=== PATIENT | female | born 1940 | race Caucasian/White ===

== ENCOUNTER 2020-10-23 08:00 | Outpatient (CLI) | payer MEDICARE, MEDICAID ==
[~2020-10-23] VITALS: Ht 152.4 cm; Wt 59.0 kg
[2020-10-23 16:28] LABS: BASOPHILS # (AUTO) 0.1 X10'3 (0-0.2); BASOPHILS % (AUTO) 0.8 % (0-1); EOSINOPHILS # (AUTO) 0.1 X10'3 (0-0.9); EOSINOPHILS % (AUTO) 1.4 % (0-6); LYMPHOCYTES # (AUTO) 1.6 X10'3 (1.1-4.8); LYMPHOCYTES % (AUTO) 21.2 % (21-51); MEAN CORPUSCULAR HEMOGLOBIN 31.4 PG (27.0-31.0); MEAN CORPUSCULAR HGB CONC 33.3 g/dL (33.0-36.5); MEAN CORPUSCULAR VOLUME 94.3 FL (78-98); MEAN PLATELET VOLUME 7.7 FL (7.4-10.4); MONOCYTES # (AUTO) 0.7 X10'3 (0-0.9); MONOCYTES % (AUTO) 9.7 % (2-12); NEUTROPHILS # (AUTO) 5.1 X10'3 (1.8-7.7); NEUTROPHILS % (AUTO) 66.9 % (42-75); PRE OP HEMATOCRIT 43.3 % (35.0-45.0); PRE OP HEMOGLOBIN 14.4 g/dL (12.0-16.0); PRE OP PLATELET COUNT 284 X10'3 (140-440); RED BLOOD COUNT 4.59 X10'6 (4.20-5.60)
[2020-10-23] MEDS ORDERED: ALEN70TA60 PO (16:31)
[2020-10-23] MEDS ORDERED: [UNRECOGNIZED DRUG - REMARK] PO (16:31)
[2020-10-23] MEDS ORDERED: FESO4TAB PO (16:31)
[2020-10-23] MEDS ORDERED: CALC1TAB2 PO (16:31)
[2020-10-23] MEDS ORDERED: VERA120T9 PO (16:31)
[2020-10-23] MEDS ORDERED: ASPI-611 PO (16:31)
[2020-10-23] MEDS ORDERED: RAMI10CA69 PO (16:31)
[2020-10-23] MEDS ORDERED: DEXL60CA3 PO (16:31)
[2020-10-23 16:38] LABS: ALBUMIN 3.9 G/DL (3.4-5.0); ALBUMIN/GLOBULIN RATIO 1.1 (1.1-1.5); ALKALINE PHOSPHATASE 73 IU/L (46-116); BLOOD UREA NITROGEN 32 MG/DL (7-18); CALCIUM 9.4 MG/DL (8.5-10.1); CHLORIDE 105 MMOL/L (99-107); PRE OP ALT 25 U/L (30-65); PRE OP ANION GAP 7 (8-16); PRE OP AST 20 U/L (10-37); PRE OP BILIRUB, TOTAL 0.3 MG/DL (0.0-1.0); PRE OP GLUCOSE 96 MG/DL (70-104); PRE OP POTASSIUM 4.3 MMOL/L (3.4-5.1); PRE OP SODIUM 142 MMOL/L (135-145); TOTAL CARBON DIOXIDE 30.2 MMOL/L (24-32); TOTAL PROTEIN 7.4 G/DL (6.4-8.2); eGFR 69 ML/MIN
[2020-10-30] MEDS ORDERED: RAMI5CAP65 PO (11:25)
[2020-11-02] MEDS ORDERED: ringers solution, lacted 1,000 ML IV SCH (05:00)
[2020-11-02] MEDS ORDERED: tranexamic acid 650mg tablet PO ONE (05:30)
[2020-11-02] MEDS ORDERED: VANCOMYCIN INJ 1000 MG in NORMAL SALINE 250ml IV.SOLN IV ONE (05:30)
[2020-11-02] MEDS ORDERED: famotidine 20mg tablet PO ONE (05:30)
[2020-11-02] MEDS ORDERED: ceFAZolin 2gm in dextrose, iso 50 ML IV ONE (05:30)
== END 2020-10-23 23:59 | disposition home or self-care (01) ==
LOC: PRE-OP 08:00 → EDSTATUS 11-02 11:15
PROVIDERS: ATTEND Orthopaedic Surgery
DX: Z01.812 Encounter for preprocedural laboratory examination (principal); M19.012 Primary osteoarthritis, left shoulder; M75.122 Complete rotator cuff tear or rupture of left shoulder, not specified as traumatic; Z20.822 Contact with and (suspected) exposure to COVID-19
CPT/HCPCS: 36415; 80053; 85025; 87081; 87635; J7120

== ENCOUNTER 2020-11-09 21:09 | Emergency (ER) | payer MEDICARE, MEDICAID ==
[~2020-11-09] VITALS: Ht 152.4 cm; Wt 57.5 kg
[~2020-11-09 21:09] MED LIST: ALEN70TA60 PO; ASPI-611 PO; CALC1TAB2 PO; DEXL60CA3 PO; FESO4TAB PO; RAMI5CAP65 PO; VERA120T9 PO; [UNRECOGNIZED DRUG - REMARK] PO
[2020-11-09 22:02] LABS: CLARITY,URINE CLOUDY (Clear); COLOR,URINE YELLOW (Yellow); GLUCOSE, URINE NEGATIVE (Neg); KETONES,URINE NEGATIVE (Neg); LEUKOCYTE ESTERASE ,URINE MODERATE (Neg); NITRITES, URINE POSITIVE (Neg); OCCULT BLOOD,URINE TRACE-INTACT (Neg); PH,URINE 5.5 (4.8-8.0); PROTEIN,URINE NEGATIVE (Neg); UROBILINOGEN,URINE 0.2 E.U/dL (0.2-1.0)
[2020-11-09 22:03] LABS: BASOPHILS # (AUTO) 0.1 X10'3 (0-0.2); BASOPHILS % (AUTO) 0.7 % (0-1); EOSINOPHILS # (AUTO) 0.2 X10'3 (0-0.9); EOSINOPHILS % (AUTO) 2.1 % (0-6); HEMATOCRIT 44.1 % (35.0-45.0); HEMOGLOBIN 14.7 g/dl (12.0-16.0); LYMPHOCYTES # (AUTO) 1.7 X10'3 (1.1-4.8); LYMPHOCYTES % (AUTO) 19.3 % (21-51); MEAN CORPUSCULAR HEMOGLOBIN 31.9 PG (27.0-31.0); MEAN CORPUSCULAR HGB CONC 33.2 g/dL (33.0-36.5); MEAN CORPUSCULAR VOLUME 96.1 FL (78-98); MEAN PLATELET VOLUME 7.9 FL (7.4-10.4); MONOCYTES # (AUTO) 0.7 X10'3 (0-0.9); MONOCYTES % (AUTO) 8.3 % (2-12); NEUTROPHILS # (AUTO) 6.1 X10'3 (1.8-7.7); NEUTROPHILS % (AUTO) 69.6 % (42-75); PLATELET COUNT 262 X10'3 (140-440); RED BLOOD COUNT 4.59 X10'6 (4.20-5.60); RED CELL DISTRIBUTION WIDTH 13.2 % (11.5-14.5); WHITE BLOOD COUNT 8.7 X10'3 (4.5-11.0)
[2020-11-09 22:09] LABS: UA COLLECTION TYPE CLN CATCH MIDSTREAM
[2020-11-09 22:11] LABS: WBC,URINE TNTC /HPF (0-4)
[2020-11-09 22:15] LABS: BACTERIA,URINE 4+ /HPF (Neg); MUCUS STRANDS FEW /LPF (Neg); RBC,URINE 0-2 /HPF (0-2); SQUAMOUS EPITHELIAL CELL,UR MODERATE /LPF (FEW); WBC CLUMPS,URINE FEW /HPF (NEGATIVE)
[2020-11-09 22:16] LABS: ALANINE AMINOTRANSFERASE 21 U/L (12-78); ALBUMIN 4.2 G/DL (3.4-5.0); ALBUMIN/GLOBULIN RATIO 1.3 (1.1-1.5); ALKALINE PHOSPHATASE 80 IU/L (46-116); ANION GAP 10 (8-16); ASPARTATE AMINO TRANSFERASE 15 U/L (10-37); BILIRUBIN,TOTAL 0.3 MG/DL (0.1-1.0); BLOOD UREA NITROGEN 35 MG/DL (7-18); BUN/CREATININE RATIO 37.6 (6.6-38.0); CALCIUM 9.4 MG/DL (8.5-10.1); CHLORIDE 106 MMOL/L (99-107); CREATININE 0.93 MG/DL (0.40-0.90); GLUCOSE 112 MG/DL (70-104); LIPASE 482 U/L (73-393); POTASSIUM 4.6 MMOL/L (3.5-5.1); SODIUM 143 MMOL/L (135-145); TOTAL CARBON DIOXIDE 27.3 MMOL/L (24-32); TOTAL PROTEIN 7.5 G/DL (6.4-8.2); eGFR 58 ML/MIN
[2020-11-09] MEDS ORDERED: celeCOXIB 100mg capsule PO SCH (22:20)
[2020-11-09] MEDS ORDERED: celeCOXIB 100mg capsule PO ONE (22:20)
[2020-11-09] MEDS ORDERED: HYDROcodone/acetaminophen 5mg/325mg tablet PO ONE (22:20)
[2020-11-09] MEDS ORDERED: levoFLOXACIN-Levaquin 750MG/D5 150 ML IV ONE (22:25)
[2020-11-09] MEDS ORDERED: normal saline 1000ML IV soln IVB ONE (22:25)
[2020-11-09] MEDS ORDERED: CELE-193 PO (22:33)
[2020-11-09] MEDS ORDERED: LEVO500T89 PO (22:33)
[2020-11-09] MEDS ORDERED: ACET-3068 PO (22:33)
[2020-11-10 00:49] VITALS: BP 152/76
--- NOTE | 2020-11-12 11:57 | NUR ---
PT CALLED AND NOTIFIED OF THE NEED TO CHANGE HER ABX BASED ON HER LAB RESULTS FOR A URINE CULTURE ON 11/09. PT NOTIFIED THAT HER ABX WILL BE CHANGED TO CEFDINIR 300MG BID x7 DAYS. RX CALLED INTO [facility] ON [facility] PER PT REQUEST AND DAUGHTER EDWARD WAS CALLED AND NOTIFIED VIA MSG TO [facility] MEDICATION AT PT'S REQUEST
== END 2020-11-10 00:55 | disposition home or self-care (01) ==
LOC: ER 21:10
DX: N39.0 Urinary tract infection, site not specified (principal); M54.9 Dorsalgia, unspecified; I10 Essential (primary) hypertension; G89.29 Other chronic pain; M81.0 Age-related osteoporosis without current pathological fracture; Z87.440 Personal history of urinary (tract) infections; Z88.0 Allergy status to penicillin; Z79.82 Long term (current) use of aspirin; Z79.2 Long term (current) use of antibiotics; Z79.899 Other long term (current) drug therapy
CPT/HCPCS: 36415; 80053; 81001; 83690; 85025; 87077; 87088; 87186; 96365; 96366; 99284; J1956; J7030

== ENCOUNTER 2022-11-18 11:11 | Emergency (ER) | payer MEDICARE, MEDICAID ==
[~2022-11-18] VITALS: Ht 152.4 cm; Wt 63.0 kg
[~2022-11-18 11:11] MED LIST changes: +ACET-1025 PO; +VERA120T86 PO; -VERA120T9 PO
[2022-11-18 12:17] LABS: BASOPHILS % (AUTO) 0.4 % (0-1); EOSINOPHILS # (AUTO) 0.1 X10'3 (0-0.9); EOSINOPHILS % (AUTO) 0.9 % (0-6); HEMATOCRIT 41.6 % (35.0-45.0); HEMOGLOBIN 13.9 g/dl (12.0-16.0); LYMPHOCYTES # (AUTO) 1.1 X10'3 (1.1-4.8); LYMPHOCYTES % (AUTO) 11.2 % (21-51); MEAN CORPUSCULAR HEMOGLOBIN 30.7 PG (27.0-31.0); MEAN CORPUSCULAR HGB CONC 33.3 g/dL (33.0-36.5); MEAN CORPUSCULAR VOLUME 92.1 FL (78-98); MEAN PLATELET VOLUME 7.5 FL (7.4-10.4); MONOCYTES # (AUTO) 0.9 X10'3 (0-0.9); MONOCYTES % (AUTO) 8.6 % (2-12); NEUTROPHILS # (AUTO) 7.9 X10'3 (1.8-7.7); NEUTROPHILS % (AUTO) 78.9 % (42-75); PLATELET COUNT 282 X10'3 (140-440); RED BLOOD COUNT 4.52 X10'6 (4.20-5.60); RED CELL DISTRIBUTION WIDTH 14.8 % (11.5-14.5)
--- NOTE | 2022-11-18 12:30 | NUR ---
DAUGHTER, EDWARD, CALLED FOR CONDITION REPORT. CONTACT NUMBER IS: HOME PHONE [phone]
[2022-11-18 12:32] LABS: ALANINE AMINOTRANSFERASE 11 U/L (12-78); ALBUMIN 3.4 G/DL (3.4-5.0); ALBUMIN/GLOBULIN RATIO 1.1 (1.1-1.5); ALKALINE PHOSPHATASE 67 IU/L (46-116); ANION GAP 8 (8-16); ASPARTATE AMINO TRANSFERASE 16 U/L (10-37); BILIRUBIN,TOTAL 0.5 MG/DL (0.1-1.0); CALCIUM 8.5 MG/DL (8.5-10.1); CHLORIDE 108 MMOL/L (99-107); CREATININE 0.58 MG/DL (0.40-0.90); GLUCOSE 106 MG/DL (70-104); LIPASE 129 U/L (73-393); POTASSIUM 3.9 MMOL/L (3.5-5.1); SODIUM 141 MMOL/L (135-145); TOTAL CARBON DIOXIDE 24.9 MMOL/L (24-32); TOTAL PROTEIN 6.6 G/DL (6.4-8.2); eGFR > 90 ML/MIN
[2022-11-18 12:40] LABS: BLOOD UREA NITROGEN 23 MG/DL (7-18); BUN/CREATININE RATIO 39.7 (6.6-38.0)
[2022-11-18] MEDS ORDERED: normal saline 1000ml 1,000 ML IV ONE (13:00)
[2022-11-18] MEDS ORDERED: iohexol 300mg/ml 100ml inj. ONE (13:15)
[2022-11-18 13:29] LABS: CLARITY,URINE SLIGHTLY CLOUDY (Clear); COLOR,URINE YELLOW (Yellow); GLUCOSE, URINE NEGATIVE (Neg); KETONES,URINE NEGATIVE (Neg); LEUKOCYTE ESTERASE ,URINE NEGATIVE (Neg); NITRITES, URINE POSITIVE (Neg); OCCULT BLOOD,URINE TRACE-INTACT (Neg); PROTEIN,URINE NEGATIVE (Neg); UROBILINOGEN,URINE 0.2 E.U/dL (0.2-1.0)
[2022-11-18 13:37] LABS: UA COLLECTION TYPE CLN CATCH MIDSTREAM
[2022-11-18 13:46] LABS: BACTERIA,URINE 2+ /HPF (Neg); MUCUS STRANDS FEW /LPF (Neg); RBC,URINE 0-2 /HPF (0-2); SQUAMOUS EPITHELIAL CELL,UR FEW /LPF (FEW); WBC CLUMPS,URINE FEW /HPF (NEGATIVE)
[2022-11-18 14:03] VITALS: BP 152/90
[2022-11-18] MEDS ORDERED: acetaminophen 325mg tablet PO ONE (14:50)
[2022-11-18] MEDS ORDERED: CefTRIAXone/D5W-Rocephin 1gm 50 ML IV ONE (14:50)
[2022-11-18] MEDS ORDERED: METR-159 PO (17:49)
[2022-11-18] MEDS ORDERED: CIPR-113 PO (17:49)
== END 2022-11-18 18:12 | disposition home or self-care (01) ==
LOC: ER 11:11
DX: N39.0 Urinary tract infection, site not specified (principal); K52.9 Noninfective gastroenteritis and colitis, unspecified; R10.84 Generalized abdominal pain; I10 Essential (primary) hypertension; K21.9 Gastro-esophageal reflux disease without esophagitis; Z88.0 Allergy status to penicillin
CPT/HCPCS: 36415; 74177; 80053; 81001; 83690; 85025; 87088; 87186; 96361; 96365; 99285; J0696; J3490; J7030; Q9967; 87077

== ENCOUNTER 2025-02-06 18:17 | Emergency (ER) | payer MEDICARE, MEDICAID ==
[~2025-02-06] VITALS: Ht 152.4 cm; Wt 61.4 kg
[~2025-02-06 18:17] MED LIST changes: -RAMI5CAP65 PO; +RAMI5CAP71 PO
--- NOTE | 2025-02-06 18:30 | Physician Documentation ---
History of Present Illness ~ Chief Complaint: Hypertension Stated Complaint: HIGH BLOOD PRESSURE Time Seen by MD: 18:30 Primary Medical Doctor: Sheri Cardenas @[facility] HPI An 84-year-old female who was brought to the emergency department due to concerns for hypertension. This was a concern by her staff at her assisted living. When questioned, the patient herself reports that she has no concerns whatsoever. She reports no chest pain, shortness of breath, nausea, vomiting, dizziness, double vision, blurred vision. She is alert and oriented, in his able to state that her typical medications are verapamil and ramipril, both of which she has taken today. She does note that she is recovering from bronchitis, and does have some residual voice hoarseness and cough despite completing a course of azithromycin. Medication Reconciliation Allergies: Coded Allergies: Penicillins (Verified Allergy, Unknown, 02/06/25) Uncoded Allergies: PENICILLIN (Allergy, Intermediate, RASH, 10/23/20) Scheduled Alendronate Sodium* (Fosamax*), 1 TAB PO Q7D, (Reported) Aspirin (Aspir 81), 1 TAB PO DAILY, (Reported) Calcium Carbonate/Vitamin D3 (Caltrate 600 + D Tablet), 1 TAB PO DAILY, (Reported) Dexlansoprazole (Dexilant), 1 CAP PO DAILY, (Reported) Fesoterodine Fumarate (Toviaz), 1 TAB PO DAILY, (Reported) Ramipril* (Altace*), 1 CAP PO DAILY, (Reported) Verapamil Hcl (Verapamil Er), 2 TAB PO DAILY, (Reported) Scheduled PRN Acetaminophen (Tylenol Extra Strength), 2 TAB PO Q6H PRN PRN for pain or fever, (Reported) [Top Care Allergy Tab], 1 TAB PO PRN PRN for allergies, (Reported) Past Medical History Past Medical History: Coronary Artery Disease, Hypertension, GERD, UTI, Chronic Pain, Osteoporosis Past Surgical History: angioplasty, other Other Past Surgical History: rectal surgery Alcohol Use: Rarely Drug Use: none Lives with: Family Lives In: Home Review of Systems ROS As stated above in the HPI, otherwise all systems are reviewed and negative. Physical Exam Vital Signs: Temperature: 98.0, Heart Rate: 82, Respiratory Rate: 16, BP: 184/102, Pulse Oximetry: 95, Weight: 61.360 Oxygen Flow Rate: 0 Physical Exam General: Alert, no apparent distress. HEENT: PERRL, EOMI, no injection, moist mucous membranes. Neck: Full range of motion. Respiratory: Lungs clear, no respiratory distress. Chest: No accessory muscle use. Cardiovascular: Regular rate and rhythm, no murmurs. Gastrointestinal: Soft, nontender, nondistended. Bowels sounds present. Extremities: Normal range of motion, no deformity. Neurologic: Oriented x4. Psychiatric: Normal mood and affect. Skin: Normal color, warm and dry. No edema, no ecchymosis. Progress Results/Orders Results/Orders Orders - SHI NATH MANUFACTURING WEAVER Chest,Single View (02/06/25 18:33) Electrocardiogram (02/06/25 ) Ct Chest (02/06/25 20:15) * Iv Access / Saline Lock * (02/06/25 20:01) Completed Orders - SHI NATH MANUFACTURING WEAVER Chest,Single View (02/06/25 18:33) CMP (02/06/25 18:33) Cbc/Diff (02/06/25 18:33) Clonidine Tablet (Catapres Tablet) (02/06/25 18:35) Ct Chest (02/06/25 20:15) Normal Saline 1000ml (Sodium Chloride 10 (02/06/25 20:05) Iohexol 300mg/Ml 100ml Inj. (Omnipaque-3 (02/06/25 20:11) Medications Received in ER Medications (Trade) Dose Ordered Sig/Reyna Route PRN Reason Start Time Stop Time Status Last Admin Dose Admin (Catapres tablet) 0.1 mg ONCE ONCE PO 02/06/25 18:35 02/06/25 18:37 DC 02/06/25 18:42 0.1 MG Sodium Chloride 1,000 ml @ 1,000 mls/hr ONCE ONCE IV 02/06/25 20:05 02/06/25 21:04 DC 02/06/25 20:44 1,000 MLS/HR Vital Signs 02/06/25 02/06/25 02/06/25 18:23 18:44 18:47 Temp 98.0 Pulse 82 80 Resp 16 18 18 B/P (MAP) 184/102 163/91 (115) Pulse Ox 95 97 O2 Flow Rate 0 0 Laboratory Tests Test 02/06/25 18:49 White Blood Count 9.3 Red Blood Count 4.36 Hemoglobin 13.7 Hematocrit 41.2 Mean Corpuscular Volume 94.7 Mean Corpuscular Hemoglobin 31.4 H Mean Corpuscular Hemoglobin Concent 33.2 Red Cell Distribution Width 13.3 Platelet Count 321 Mean Platelet Volume 7.3 L Neutrophils (%) (Auto) 66.6 Lymphocytes (%) (Auto) 23.8 Monocytes (%) (Auto) 8.6 Eosinophils (%) (Auto) 0.6 Basophils (%) (Auto) 0.4 Neutrophils # (Auto) 6.2 Lymphocytes # (Auto) 2.2 Monocytes # (Auto) 0.8 Eosinophils # (Auto) 0.1 Basophils # (Auto) 0.0 CBC Comment Sodium Level 143 Potassium Level 4.4 Chloride Level 107 Carbon Dioxide Level 28.4 Anion Gap 8 Blood Urea Nitrogen 33 H Creatinine 0.90 Estimated GFR/1.73 m2 60 BUN/Creatinine Ratio 36.7 H Glucose Level 96 Calcium Level 9.6 Total Bilirubin 0.2 Aspartate Amino Transf (AST/SGOT) 19 Alanine Aminotransferase (ALT/SGPT) 13 Alkaline Phosphatase 66 Total Protein 7.0 Albumin 3.5 Globulin 3.5 Albumin/Globulin Ratio 1.0 L Chemistry Comments EKG/XRAY/CT/US/VASC/MRI EKG : Additional Comment 1912 EKG interpreted to show RSR rate of 73. No ectopy. No ST segment elevation. QTC [address] : Impression Patient: SHEILA DUMONT Medical Record: [id number] [facility] : 1940, Age: 84 Sex: Female Location: ER Patient Status: REG ER Service Date/Time: 02/06/251832 Ordering Physician: SHI NATH NP Exam: CHEST,SINGLE VIEW EXAM: DI CHEST,SINGLE VIEW TECHNIQUE: Single frontal chest radiograph CLINICAL HISTORY: cough COMPARISON: None Findings/Impression: Frontal chest radiograph demonstrates no acute osseous or superficial soft tissue abnormalities. The trachea is midline. The cardiac silhouette and mediastinum are within normal limits. Low lung volumes with bronchovascular crowding. No pneumothorax, pleural effusions, or consolidations. Electronically Signed by:NUNU ARAGON DO Date & Time: 02/06/252019 [facility] [address] , [place], [facility] [address] CAT SCAN Patient: SHEILA DUMONT Medical Record: [id number] [facility] : 1940, Age: 84 Sex: Female Location: ER Patient Status: REG ER Service Date/Time: 02/06/252014 Ordering Physician: SHI NATH MANUFACTURING WEAVER Exam: CT CHEST CONTRAST ENHANCED CHEST COMPUTERIZED TOMOGRAPHY REASON FOR STUDY: Right chest mass on radiography. COMPARISON: Chest radiograph performed earlier on the same date. TECHNIQUE: Axial CT images of the chest were obtained after the uneventful intravenous administration of contrast. 2-D coronal and sagittal reformatted images were provided. Automated exposure control was used. LABS: Current laboratory values provided were reviewed or point of care testing was performed to verify the patient meets current departmental guidelines for contrast media administration per protocol. MEDICATIONS: The patient's medications were reviewed. RADIATION DOSE: CTDI: 13 mGy DLP: 472 mGy-cm CONTRAST: 100 mL omnipaque 300 FINDINGS: There is mild scarring at both lung apices. There is a small focal area of consolidation at the medial aspect of the right upper lobe. There is platelike atelectasis in the left lower lobe. There is no bronchiectasis or honeycombing. There is no pleural effusion. There is no pneumothorax. No mass is identified in either lung. There is no pathologic lymphadenopathy by size cr iteria in the chest. The heart is not enlarged. There is no thoracic aortic aneurysm or dissection. There is no large proximal pulmonary embolism. There are tiny calcified right hilar lymph nodes most consistent with prior granulomatous disease. The esophagus is patulous and distended with air. There is a small hiatal hernia. The gallbladder is surgically absent. No other gross abnormality is identified in the partially visualized upper abdomen. There is partial visualization of left shoulder arthroplasty. No acute osseous abnormality is identified. There are old healed fractures of the right 5th, 6th, and 7th ribs. There are degen erative changes throughout the visualized spine. IMPRESSION: Mild biapical pulmonary scarring. Right upper lobe focal consolidation, likely chronic and related to prior granulomatous disease. Calcified small right hilar lymph nodes. Mild left lower lobe platelike atelectasis. No pulmonary mass is identified. Electronically Signed by:MILAN SANDERS MD Date & Time: 02/06/252231 Dictated by: MILAN SANDERS MD Dictation date and time: 02/06/252231 Primary Care Provider: NO PRIMARY CARE PROVIDER cc: SHI NATH NP ~ Dictated by: NUNU ARAGON DO Dictation date and time: 02/06/25 184 Primary Care Provider: NO PRIMARY CARE PROVIDER cc: SHI NATH NP ~ Medical Decision Making Additional Information 84-year-old elderly female presented to concerns for hypertension. She noted that she had recently completed a course of azithromycin for what was thought to be bronchitis. Her daughter, who accompanied her, expressed concern that she had had this recent illness and that her blood pressure was running so high. She requested a workup including labs to ensure that she had no urgent issues occurring. Labs were pursued, overall normal. Chest x-ray initially showed suggestion of an abnormality in the right lung, but CT indicated that this was atelectasis with granulomatous disease. No mass. She was given one liter of NS and medicated for BP with clonidine 0.1 mg x 1 po to good effect. She was then appropriate for discharge and return to her assisted living facility. Departure Time of Disposition: 22:39 Disposition: 01 HOME / SELF CARE / HOMELESS Impression: Primary Impression: High blood pressure Condition: Stable Discharge Instructions: Hypertension, Adult Additional Instructions: Your chest xray initially showed an abnormality in the right lung. CT, which gives better images, was not concerning for a mass. You do have some changes in the lungs, but these are thought to be chronic and not representing a cancer or anything of concern. Talk to your doctor about adjusting your medication for blood pressure or perhaps offering the nurses at your facility something they can give you occasionally if you're running high. Return if worse. Referrals: NO PRIMARY CARE PROVIDER (PCP) Education Educated: Patient, Family Educated regarding: diagnosis, treatment, prognosis, need for follow up Signature Scribe Signature: no scribe Attestation: The note accurately reflects work and decisions made by me.Shi Moody NP 02/06/25 18:35 SHI NATH NP Feb 06, 2025 18:30
[2025-02-06] MEDS: cloNIDine 0.1 mg tablet PO ONE (18:42)
[2025-02-06 19:03] LABS: BASOPHILS % (AUTO) 0.4 % (0-1); EOSINOPHILS # (AUTO) 0.1 X10'3 (0-0.9); EOSINOPHILS % (AUTO) 0.6 % (0-6); HEMATOCRIT 41.2 % (35.0-45.0); HEMOGLOBIN 13.7 g/dl (12.0-16.0); LYMPHOCYTES # (AUTO) 2.2 X10'3 (1.1-4.8); LYMPHOCYTES % (AUTO) 23.8 % (21-51); MEAN CORPUSCULAR HEMOGLOBIN 31.4 PG (27.0-31.0); MEAN CORPUSCULAR HGB CONC 33.2 g/dL (33.0-36.5); MEAN CORPUSCULAR VOLUME 94.7 FL (78-98); MEAN PLATELET VOLUME 7.3 FL (7.4-10.4); MONOCYTES # (AUTO) 0.8 X10'3 (0-0.9); MONOCYTES % (AUTO) 8.6 % (2-12); NEUTROPHILS # (AUTO) 6.2 X10'3 (1.8-7.7); NEUTROPHILS % (AUTO) 66.6 % (42-75); PLATELET COUNT 321 X10'3 (140-440); RED BLOOD COUNT 4.36 X10'6 (4.20-5.60); RED CELL DISTRIBUTION WIDTH 13.3 % (11.5-14.5); WHITE BLOOD COUNT 9.3 X10'3 (4.5-11.0)
[2025-02-06 19:14] LABS: ALANINE AMINOTRANSFERASE 13 U/L (12-78); ALBUMIN 3.5 G/DL (3.4-5.0); ALKALINE PHOSPHATASE 66 IU/L (46-116); ANION GAP 8 (8-16); ASPARTATE AMINO TRANSFERASE 19 U/L (10-37); BILIRUBIN,TOTAL 0.2 MG/DL (0.1-1.0); BLOOD UREA NITROGEN 33 MG/DL (7-18); BUN/CREATININE RATIO 36.7 (10.0-20.0); CALCIUM 9.6 MG/DL (8.5-10.1); CHLORIDE 107 MMOL/L (99-107); GLUCOSE 96 MG/DL (70-104); POTASSIUM 4.4 MMOL/L (3.5-5.1); SODIUM 143 MMOL/L (135-145); TOTAL CARBON DIOXIDE 28.4 MMOL/L (24-32); eCRCL 34 ML/MIN; eGFR 60 ML/MIN
[2025-02-06] MEDS ORDERED: iohexol 300mg/ml 100ml inj. ONE (20:11)
--- NOTE | 2025-02-06 20:22 | RADIOLOGY REPORT ---
EXAM: DI CHEST,SINGLE VIEW TECHNIQUE: Single frontal chest radiograph CLINICAL HISTORY: cough COMPARISON: None Findings/Impression: Frontal chest radiograph demonstrates no acute osseous or superficial soft tissue abnormalities. The trachea is midline. The cardiac silhouette and mediastinum are within normal limits. Low lung volumes with bronchovascular crowding. No pneumothorax, pleural effusions, or consolidations.
[2025-02-06] MEDS: normal saline 1000ml 1,000 ML IV ONE (20:44)
--- NOTE | 2025-02-06 22:34 | RADIOLOGY REPORT ---
CONTRAST ENHANCED CHEST COMPUTERIZED TOMOGRAPHY REASON FOR STUDY: Right chest mass on radiography. COMPARISON: Chest radiograph performed earlier on the same date. TECHNIQUE: Axial CT images of the chest were obtained after the uneventful intravenous administration of contrast. 2-D coronal and sagittal reformatted images were provided. Automated exposure control was used. LABS: Current laboratory values provided were reviewed or point of care testing was performed to bonifacio iraj the patient meets current departmental guidelines for contrast media administration per protocol. MEDICATIONS: The patient's medications were reviewed. RADIATION DOSE: CTDI: 13 mGy DLP: 472 mGy-cm CONTRAST: 100 mL omnipaque 300 FINDINGS: There is mild scarring at both lung apices. There is a small focal area of consolidation at the medial aspect of the right upper lobe. There is platelike atelectasis in the left lower lobe. There is no bronchiectasis or honeycombing. There is no pleural effusion. There is no pneumothorax. No mass is identified in either lung. There is no pathologic lymphadenopathy by size criteria in e chest. The heart is not enlarged. There is no thoracic aortic aneurysm or dissection. There is no l arge proximal pulmonary embolism. There are tiny calcified right hilar lymph nodes most consistent wi prior granulomatous disease. The esophagus is patulous and distended with air. There is a small hi atal hernia. The gallbladder is surgically absent. No other gross abnormality is identified in the partially visua lized upper abdomen. There is partial visualization of left shoulder arthroplasty. No acute osseous a bnormality is identified. There are old healed fractures of the right 5th, 6th, and 7th ribs. There a re degenerative changes throughout the visualized spine. IMPRESSION: Mild biapical pulmonary scarring. Right upper lobe focal consolidation, likely chronic and related to prior granulomatous disease. Calcified small right hilar lymph nodes. Mild left lower lobe platelike atelectasis. No pulmonary mass is identified.
[2025-02-06 23:00] VITALS: BP 142/80; PULSE 70; RESP 16; TEMP 97.9; O2SAT 99
--- NOTE | 2025-02-07 05:44 | ELECTROCARDIOGRAPH REPORT ---
[facility] Test Date: 2025-02-06 Test Time: 19:13:40 Pat Name: SHEILA DUMONT Department: EMERGENCY ROOM Room: Gender: F Career Resource Technician: : 1940 Requested By: JENY NATH Order Number: [id number] Reading MD: Dr. Marcelo Adams Measurements Intervals [place] Rate: 73 P: 30 NC: 162 QRS: 15 QRSD: 88 T: 36 QT: 390 QTc: 430 Interpretive Statements Sinus rhythm Low voltage, precordial leads Abnormal R-wave progression, early transition Electronically Signed On 02-07-2025 6:09:[address] Marcelo Adams Please click the below link to view image of tracing.
== END 2025-02-06 23:20 | disposition home or self-care (01) ==
LOC: ER 18:18
DX: I10 Essential (primary) hypertension (principal); R05.9 Cough, unspecified; I25.10 Atherosclerotic heart disease of native coronary artery without angina pectoris; M81.0 Age-related osteoporosis without current pathological fracture; Z88.0 Allergy status to penicillin
CPT/HCPCS: 36415; 71045; 71260; 80053; 85025; 93005; 96360; 99285; J7030; Q9967

== ENCOUNTER 2025-06-09 11:31 | Inpatient (IN) | payer MEDICARE, MEDICAID ==
[~2025-06-09] VITALS: Ht 152.4 cm; Wt 71.0 kg
--- NOTE | 2025-06-09 13:53 | Physician Documentation ---
History of Present Illness ~ Chief Complaint: Weakness Stated Complaint: SICK Time Seen by MD: 13:46 OK to notify your PCP?: No Primary Medical Doctor: Sheri Cardenas @[facility] Mode of Arrival: Ambulatory HPI 84-year-old female presents today for concerns over bilateral lower extremity swelling increased weakness and a chronic history of UTIs combined with a week of altered behavior. Patient denies any incontinence frequency or burning urination. The patient's daughters at bedside and reports dramatic change in behavior over the last three days. She denies any history of cardiac heart failure. Denies any chest pain nausea vomiting Day of Onset: Jun 09, 2025 Medication Reconciliation Allergies: Coded Allergies: Penicillins (Verified Allergy, Unknown, 06/09/25) Uncoded Allergies: PENICILLIN (Allergy, Intermediate, RASH, 10/23/20) Scheduled Alendronate Sodium* (Fosamax*), 1 TAB PO Q7D, (Reported) Aspirin (Aspir 81), 1 TAB PO DAILY, (Reported) Calcium Carbonate/Vitamin D3 (Caltrate 600 + D Tablet), 1 TAB PO DAILY, (Reported) Dexlansoprazole (Dexilant), 1 CAP PO DAILY, (Reported) Fesoterodine Fumarate (Toviaz), 1 TAB PO DAILY, (Reported) Ramipril* (Altace*), 1 CAP PO DAILY, (Reported) Verapamil Hcl (Verapamil Er), 2 TAB PO DAILY, (Reported) Scheduled PRN Acetaminophen (Tylenol Extra Strength), 2 TAB PO Q6H PRN PRN for pain or fever, (Reported) [Top Care Allergy Tab], 1 TAB PO PRN PRN for allergies, (Reported) Past Medical History Past Medical History: Coronary Artery Disease, Hypertension, GERD, UTI, Chronic Pain, Osteoporosis Past Surgical History: angioplasty, other Other Past Surgical History: rectal surgery Alcohol Use: Rarely Drug Use: none Lives with: Family Lives In: Home Review of Systems All Other Systems at this time: Reviewed and Negative ROS As stated above in the HPI, otherwise all systems are reviewed and negative. Physical Exam Vital Signs: Temperature: 97.3, Source: Oral, Heart Rate: 83, Respiratory Rate: 16, BP: 158/90, Pulse Oximetry: 100, Weight: 71.000 Oxygen Flow Rate: 0 Physical Exam General: Alert, no apparent distress. Respiratory: Lungs clear, no respiratory distress. Chest: No accessory muscle use. Cardiovascular: Regular rate and rhythm, no murmurs. Gastrointestinal: Soft, nontender, nondistended. Bowels sounds present. Extremities: 2+ pitting edema bilateral lower extremity Neurologic: Oriented x4. Psychiatric: Normal mood and affect. Skin: Normal color, warm and dry. No edema, no ecchymosis. Progress Results/Orders Results/Orders Orders - YANICK JESSICA CARDIOLOGY CONSULTANT Chest,Single View (06/09/25 14:04) Monitor (06/09/25 13:53) Saline Lock (06/09/25 13:53) Oxygen (06/09/25 13:53) Straight Cath For Urine Sample (06/09/25 13:55) Cult Urine + [place] Ct (06/09/25 15:50) Page Hospitalist (06/09/25 ) Completed Orders - YANICK JESSICA CARDIOLOGY CONSULTANT Chest,Single View (06/09/25 14:04) Cbc/Diff (06/09/25 13:53) BMP (06/09/25 13:53) PBNP (06/09/25 13:53) Electrocardiogram (06/09/25 13:53) Hs Troponin I W Calculations (06/09/25 13:53) Hs Troponin I W Calculations (06/09/25 15:53) Hs Troponin I W Calculations (06/09/25 16:53) Ua W/Microscopic, Cult If Ind (06/09/25 15:20) Medications Received in ER Medications (Trade) Dose Ordered Sig/Reyna Route PRN Reason Start Time Stop Time Status Last Admin Dose Admin Sodium Chloride 1,000 ml @ 100 mls/hr Q10H IV 06/09/25 16:20 06/09/25 18:02 100 MLS/HR Vital Signs 06/09/25 06/09/25 06/09/25 06/09/25 11:36 11:46 12:35 13:35 Temp 97.3 Pulse 82 82 83 Resp 16 18 16 B/P (MAP) 172/80 169/87 (114) 158/90 (112) Pulse Ox 95 94 100 O2 Flow Rate 0 0 0 Laboratory Tests Test 06/09/25 14:08 06/09/25 15:20 06/09/25 15:41 White Blood Count 8.9 Red Blood Count 4.36 Hemoglobin 13.6 Hematocrit 40.6 Mean Corpuscular Volume 93.2 Mean Corpuscular Hemoglobin 31.1 H Mean Corpuscular Hemoglobin Concent 33.4 Red Cell Distribution Width 13.2 Platelet Count 303 Mean Platelet Volume 7.1 L Neutrophils (%) (Auto) 73.5 Lymphocytes (%) (Auto) 15.1 L Monocytes (%) (Auto) 9.6 Eosinophils (%) (Auto) 1.3 Basophils (%) (Auto) 0.5 Neutrophils # (Auto) 6.5 Lymphocytes # (Auto) 1.3 Monocytes # (Auto) 0.9 Eosinophils # (Auto) 0.1 Basophils # (Auto) 0.0 CBC Comment Sodium Level 141 Potassium Level 4.1 Chloride Level 105 Carbon Dioxide Level 27.9 Anion Gap 8 Blood Urea Nitrogen 34 H Creatinine 0.89 Estimated GFR/1.73 m2 61 BUN/Creatinine Ratio 38.2 H Glucose Level 104 Calcium Level 9.3 Troponin I High Sensitivity 13 12 Pro-B-Type Natriuretic Peptide 123 Albumin 3.3 L Chemistry Comments Urine Specimen Description Cln catch midstream Urine Color Yellow Urine Clarity Clear Urine pH 6.0 Urine Specific [place] 1.015 Urine Protein Negative Urine Glucose (UA) Negative Urine Ketones Negative Urine Occult Blood Trace-intact Urine Nitrite Negative Urine Bilirubin Negative Urine Urobilinogen 0.2 Urine Leukocyte Esterase Trace H Urine RBC 0-2 Urine WBC 5-10 H Urine Squamous Epithelial Cells Few Urine Transitional Epithelial Cells Few Urine Bacteria Few Urine Culture Indicated Indicated Volume Urine Centrifuged 10 ml Urine Comment Troponin I High Sens Percent Delta 7 Troponin I Hi Sens Absolute Change -1 Microbiology Date/Time Source Procedure Growth Status 06/09/25 15:50 Urine Clean Catch Midstream Urine Culture - Preliminary Culture received. Resulted Medical Decision Making Findings Her on thorough evaluation this patient is laboratory values do not on indicate any current infectious processes. Her urinalysis does not have any signs of UTI. However this patient has a notable change in behavior over the last 4-5 days per the patient's daughter who was at bedside and who is her caregiver. This time I do not feel that it is safe to discharge the patient based on this change in her cognitive status. One requests hospitalization for MRI and further evaluation Differential Dx:Considerations: Include: anemia, CVA, dehydration, dysrhythmia, electrolyte imbalance, encephalopathy, Guillain-[place], hypoglycemia, hypotension, hypovolemia, labyrinthitis, Meniere's disease, myasathenia gravis, myocardial infarction, pulmonary embolus, renal failure, respiratory failure, TIA, VBI, vertigo central, vertigo peripheral, vestibular neuronitis, other Departure Disposition: 09 ADMITTED INPATIENT Impression: Primary Impression: Metabolic encephalopathy Referrals: NO PRIMARY CARE PROVIDER (PCP) Signature Scribe Signature: f Attestation: Scribed for Yanick Jessica Sap Business Objects Consultant by Yanick Moody NP . 06/09/25 16:04 YANICK JESSICA NP Jun 09, 2025 13:53
--- NOTE | 2025-06-09 14:12 | ELECTROCARDIOGRAPH REPORT ---
[facility] Test Date: 2025-06-09 Test Time: 14:09:27 Pat Name: SHEILA DUMONT Department: [facility] Patient ID: [facility]-[id number] Room: [place] [address] Gender: F [employer] Sewer: : 1940 Requested By: SARY JESSICA Order Number: [id number] Reading MD: Dr. Marcelo Adams Measurements Intervals [place] Rate: 78 P: 26 SD: 154 QRS: 13 QRSD: 89 T: 55 QT: 400 QTc: 456 Interpretive Statements Sinus rhythm Abnormal R-wave progression, early transition Baseline wander in lead(s) II,III,aVF Electronically Signed On 06-27-2025 7:43:[address] Marcelo Adams Please click the below link to view image of tracing.
[2025-06-09 14:16] LABS: MEAN PLATELET VOLUME 7.1 FL (7.4-10.4); RED CELL DISTRIBUTION WIDTH 13.2 % (11.5-14.5)
--- NOTE | 2025-06-09 14:21 | RADIOLOGY REPORT ---
EXAM: DI CHEST,SINGLE VIEW Indication: CP Technique: Single frontal view of the chest was obtained Comparison: CT CT CHEST W/ IV CONTRAST on DOS: 02/06/25, DI CHEST,SINGLE VIEW on DOS: 02/06/25 FINDINGS: Lines and Tubes: None Lungs: No focal consolidation. Pleura: No effusion. No pneumothorax. Cardiomediastinal contours: Unremarkable. Status post left shoulder arthroplasty. Bones: No acute osseous abnormality. IMPRESSION: No acute cardiopulmonary disease.
[2025-06-09 14:37] LABS: CREATININE 0.89 MG/DL (0.40-0.90); PRO BRAIN NATRIURETIC PEPTIDE 123 PG/ML (0-450); TOTAL CARBON DIOXIDE 27.9 MMOL/L (24-32); eCRCL 34 ML/MIN; eGFR 61 ML/MIN
[2025-06-09 15:44] LABS: LEUKOCYTE ESTERASE ,URINE TRACE (Neg); NITRITES, URINE NEGATIVE (Neg); OCCULT BLOOD,URINE TRACE-INTACT (Neg)
[2025-06-09 15:45] LABS: UA COLLECTION TYPE CLN CATCH MIDSTREAM
[2025-06-09 15:50] LABS: SQUAMOUS EPITHELIAL CELL,UR FEW /LPF (FEW)
[2025-06-09] MEDS ORDERED: mag hydrox/Alum hydrox/simeth 30ml oral suspension PO PRN (16:20)
[2025-06-09] MEDS ORDERED: ondansetron 4mg rapidly disintigrating tab PO PRN (16:20)
[2025-06-09] MEDS ORDERED: ondansetron/PF 4mg/2ml inj IV PRN (16:20)
[2025-06-09] MEDS ORDERED: magnesium sulf-water 2g/50mL 50 ML IV PRN (16:20)
[2025-06-09] MEDS ORDERED: potassium Cl 20 mEq SR tablet PO PRN ×2 (16:20)
[2025-06-09] MEDS ORDERED: HYDROcodone/acetaminophen 10/325mg tab PO PRN (16:20)
[2025-06-09] MEDS ORDERED: magnesium sulf-water 4G/100mL 100 ML IV PRN (16:20)
[2025-06-09] MEDS ORDERED: hydrALAZINE 20mg/ml inj. IV PRN (16:20)
[2025-06-09] MEDS ORDERED: magnesium hydroxide 30ml (MOM) UD suspension PO PRN (16:20)
--- NOTE | 2025-06-09 17:15 | HISTORY AND PHYSICAL ---
History & Physical Providers to CC ~ History of Present Illness Reason for Admit\Complaint: Hypertensive emergency, metabolic encephalopathy History of Present Illness Radha Rojas is a 84-year-old female with a past medical history of hypertension and CAD s/p stent who was brought to the ED due to concerns for intermittent erratic behavior including stating things that are not there, not remembering her residence x 1 week. Patient also reports left lower ankle swelling that she noticed recently. At the time of admission assessment in the presence of her daughter, patient is A&Ox3 and does not display any abnormal neurological symptoms. History was taken from the patient and her daughter who was at bedside. Patient denies prior CVA, seizures, cardiac arrhythmia, DVT/PE, or GIB. Patient denies chest pain, palpitations, shortness of breath, abdominal pain, n/v/d. Patient is to be admitted for further workups and treatment. Allergies: Coded Allergies: Penicillins (Verified Allergy, Unknown, 06/09/25) Uncoded Allergies: PENICILLIN (Allergy, Intermediate, RASH, 10/23/20) Home Medications Home Medications Active Reported Tylenol Extra Strength (Acetaminophen) 500 Mg Tablet 2 Tab PO Q6H PRN PRN Altace* (Ramipril) 5 Mg Capsule 1 Cap PO DAILY Toviaz (Fesoterodine Fumarate) 4 Mg Tab.sr.24h 1 Tab PO DAILY [Top Care Allergy Tab] 1 Tab PO PRN PRN Fosamax* (Alendronate Sodium) 70 Mg Tablet 1 Tab PO Q7D in the morning, at least 30 minutes before the first food, beverage, or medication of the day Dexilant (Dexlansoprazole) 60 Mg Cap.bp 1 Cap PO DAILY Verapamil Er (Verapamil Hcl) 120 Mg Tablet.sa 2 Tab PO DAILY Caltrate 600 + D Tablet (Calcium/Vitamin D) 1 Each Tablet 1 Tab PO DAILY Aspir 81 (Aspirin) 81 Mg Tablet. 1 Tab PO DAILY Past Medical History Past Medical History Hypertension Osteoporosis Rotator cuff Past Surgical History Surgical History Comment Hysterectomy Cholecystectomy Orthopedic surgeries Bunion surgery Past Social History Social History Comment Alcohol: Denies Tobacco: Denies Illicit drug use: Denies Living situation: Lives at assisted living facility ROS ROS Other than positives in HPI, all 14 review of systems are negative Exam Vitals: Vital Signs Date Time Temp Pulse Resp B/P (MAP) Pulse Ox O2 Delivery O2 Flow Rate FiO2 06/09/25 13:35 83 16 158/90 (112) 100 0 06/09/25 11:36 97.3 General: Generalized weakness, A&Ox 3, NAD HEENT: Normocephalic, PERRLA Neck: Supple, trachea midline, no JVD Chest: Clear to auscultation bilaterally Cardiovascular: RRR, S1&S2 Abdomen: Soft and nontender Extremities: +1 edema left ankle edema, mild tenderness left lateral lower leg Central Nervous System: No focal deficits Musculoskeletal: No paraspinal muscle tenderness, no muscle spasm Skin: Warm and intact Diagnostic Data Last Recorded Lab Results: 06/09/25 1408 06/09/25 1408 Additional Plan 84-year-old female with a past medical history of hypertension and CAD s/p stent who was brought to the ED due to concerns for intermittent erratic behavior including stating things that are not there, not remembering her residence x 1 week. Patient also reports left lower ankle swelling that she noticed recently. During admission assessment, patient is A&Ox3. 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 Advance care planning: Discussed with patient the importance of advance care planning in case of emergent situation. We discussed various resuscitative measures/ ACP with the patient at the time of admission. Patient voiced understanding and patient has decided on a full code status. Date of Service: Jun 09, 2025 Billing Provider: VIJAYA PARIS Common Visit Codes: [id number] INP/OBS CARE (HIGH) Secondary Visit Codes: [id number] CARE PLAN 30 MINUTES VIJAYA PARIS Jun 09, 2025 17:15
--- NOTE | 2025-06-09 17:37 | RADIOLOGY REPORT ---
EXAM: CT CT HEAD INDICATION: encephalopathy TECHNIQUE: CT images of the head were obtained without administration of IV contrast. CT scans at this facility use dose modulation, iterative reconstruction, and/or weight based dosing when appropriate to reduce radiation dose to as low as reasonably achievable. COMPARISON: None FINDINGS: PARENCHYMA: No acute hemorrhage. There is no mass effect, midline shift, or herniation. There is preservation of the mcintyre white differentiation. Mild scattered hypoattenuation along the periventricular, centrum semiovale, and deep white matter tracts, which are nonspecific however statistically most likely represent chronic microvascular ischemic change. VENTRICLES: No hydrocephalus. EXTRA-AXIAL SPACES: No extra-axial fluid collections. OTHER: The bony structures are intact. Visualized portions of the paranasal sinuses and mastoid air cells are clear. Degenerative change of bilateral temporomandibular joints. Vascular calcifications. IMPRESSION: 1. No CT evidence of an acute intracranial abnormality.
[2025-06-09] MEDS: hydrALAZINE 20mg/ml inj. IV ONE (18:01)
[2025-06-09] MEDS: normal saline 1000ml 1,000 ML IV SCH (18:02)
[2025-06-09] MEDS: K and/or MAG REPLACEMENT MC SCH (20:00)
[2025-06-09] MEDS: docusate sod 100mg capsule PO SCH (20:00)
[2025-06-09] MEDS: haloperidol lactate 5mg/ml inj IM ONE (21:33)
[2025-06-09] MEDS: heparin, porcine 5000 units/ml vial SQ SCH (22:13)
[2025-06-09 22:50] VITALS: BP 125/62; PULSE 99; RESP 16; TEMP 98.2; O2SAT 90
[2025-06-09] MEDS: HYDROcodone/acetaminophen 5mg/325mg tablet PO PRN (23:21)
[2025-06-10] MEDS ORDERED: MIRT-142 PO (00:12)
[2025-06-10] MEDS ORDERED: GABA-530 PO (00:12)
[2025-06-10] MEDS ORDERED: FAMO20TA8 PO (00:12)
[2025-06-10] MEDS ORDERED: DILT30TA34 PO (00:12)
[2025-06-10] MEDS ORDERED: LIDO700A47 TOP (00:12)
[2025-06-10] MEDS ORDERED: MAGN100T PO (00:12)
[2025-06-10 00:38] VITALS: O2SAT 92
[2025-06-10 05:46] LABS: MEAN PLATELET VOLUME 7.7 FL (7.4-10.4); RED CELL DISTRIBUTION WIDTH 13.1 % (11.5-14.5)
[2025-06-10 06:00] VITALS: BP 150/67; PULSE 75; RESP 12; TEMP 97.1; O2SAT 95
[2025-06-10 06:06] LABS: CHOL/HDL RATIO 2.6 (0.00-4.99); CREATININE 0.95 MG/DL (0.40-0.90); LDL CHOLESTEROL 73 MG/DL (50-100); TOTAL CARBON DIOXIDE 27.1 MMOL/L (24-32); eCRCL 32 ML/MIN; eGFR 56 ML/MIN
--- NOTE | 2025-06-10 09:00 | VASCULAR REPORT ---
[facility] Vascular Department [address] [address] [email or web address] VELAZQUEZ Name : SHEILA DUMONT Date : 06/09/2025 [facility] Birthdate : 1940 Sex :F [employer] : Mann Moody BS, RVT Age : [address]Y [address] : VIJAYA PARIS, Preliminary Report The above named patient was referred for a NON-INVASIVE LOWER EXTREMITY VENOUS EXAMINATION. The evaluation includes grayscale imaging, color flow Doppler and spectral analysis of the major deep and superficial lower extremity veins. Bilateral Lower Extremity Venous Study for DVT Patient ER InaRSation's Left lower extremity swelling Medications 81mg Aspirin Vein Imaging (Right) CFV (R): Compressible, Spontaneous, Respirophasic, Augmentation Reflux: ms SFJ (R): Compressible, Spontaneous, Respirophasic, Augmentation Reflux: ms FEM (R): Compressible, Spontaneous, Respirophasic, Augmentation Reflux: ms POP (R): Compressible, Spontaneous, Respirophasic, Augmentation Reflux: ms DFV (R): Compressible, Spontaneous, Respirophasic, Augmentation Reflux: ms PTV (R): Compressible, Spontaneous, Respirophasic, Augmentation Reflux: ms GSV (R): Compressible, Spontaneous, Respirophasic, Augmentation Reflux: ms Peroneals (R): Compressible, Spontaneous, Respirophasic, Augmentation Reflux: ms Vein Imaging (Left) CFV (L): Compressible, Spontaneous, Respirophasic, Augmentation Reflux: ms SFJ (L): Compressible, Spontaneous, Respirophasic, Augmentation Reflux: ms FEM (L): Compressible, Spontaneous, Respirophasic, Augmentation Reflux: ms POP (L): Compressible, Spontaneous, Respirophasic, Augmentation Reflux: ms DFV (L): Compressible, Spontaneous, Respirophasic, Augmentation Reflux: ms PTV (L): Subacute occlusive thrombus Reflux: ms GSV (L): Compressible, Spontaneous, Respirophasic, Augmentation Reflux: ms Peroneals (L): Compressible, Spontaneous, Respirophasic, Augmentation Reflux: ms Doppler Evaluation (Right) CFV (R): Spontaneous, Respirophasic POP (R):Spontaneous, Respirophasic Doppler Evaluation (Left) CFV (L):Spontaneous, Respirophasic POP (L):Spontaneous, Respirophasic Critical Notification Physician Notified Date: 06/09/2025 Time: 18:19 Physician Name:PREVENTIVE MEDICINE PHYSICIAN 15 Critical Value Impression: Subacute occlusive thrombus noted in the left Posterior Tibial Veins. No other thrombus noted within the lower extremities bilaterally. All other interrogated vessels appear patent and demonstrate spontaneous, respirophasic waveforms.
[2025-06-10 10:00] VITALS: BP 148/82; PULSE 110; RESP 18; TEMP 97.6; O2SAT 94
[2025-06-10] MEDS: diazepam inj 5 MG/ML inj. IM ONE (14:43)
--- NOTE | 2025-06-10 15:45 | PROGRESS NOTE ---
Daily Progress Note Providers to CC ~ had an episode of agitation today resting in the bed now Severino-Non Protocol Severino Indications Met/Not Met: F/C Indications Not Met Antibiotic Timeout Antibiotic Ordered?: No MRSA Education MRSA Education Provided to pt: No Subjective As above Objective Vital Signs Date Time Temp Pulse Resp B/P (MAP) Pulse Ox O2 Delivery O2 Flow Rate FiO2 06/10/25 14:43 18 06/10/25 10:00 97.6 110 148/82 (104) 94 Room Air 06/09/25 21:40 0 Vital signs, stable ,afebrile. Pulse Oximetry reflects adequate oxygenation. General: well developed, well nourished. Awake , alert, and oriented x4, resting comfortably in the bed, in no acute distress . Skin: Warm, dry, no pallor, no rash or petechiae. HEENT: Atraumatic, normocephalic, EOMI, anicteric sclera B; pink conjunctiva; PERRLA, normal oropharynx, moist oral and nasal mucosa. Tympanic membrane , nose , throat clear. Neck: Trachea midline. Supple, full range of motion, no JVD, bruit , hepatojugular reflex , lymphadenopathy or masses, or other lesions Cardiac: Regular rhythm, regular rate no murmurs, rubs, or gallops. Normal S1 and S2, no S3 noticed. PMI is normal. Respiratory: Equal breath sounds bilaterally, no tachypnea; lungs clear to auscultation bilaterally, no wheezing ,rub or rales, or crackles. Chest wall is symmetric and without deformity. No signs of trauma. Chest wall is nontender. No signs of respiratory distress. Resonance is normal upon percussion bilaterally. Gastrointestinal: Abdomen symmetric, non-distended, soft, non-tender, normal bowel sounds x4 quadrant, normoactive, no hepatosplenomegaly , no masses , no bruit, no flank pain bilaterally. No voluntary guarding, rebound, or rigidity. No tenderness to percussion. No pulsatile masses. Equal femoral pulses. No Sarmiento's sign or McBurney point tenderness. Back; no CVA tenderness bilaterally, no deformities. Neck and back are without deformity as well. No tenderness noted on palpation of the spinous processes. Spinous processes are midline. Cervical, thoracic, and lumbar paraspinal muscles are not tender and are without spasm. Musculoskeletal: Extremities, normal range of motion, non-tender, muscle strength 5/5 x 4. Negative Homans signs bilaterally on lower extremity. Distal pulses full symmetrical, no clubbing, cyanosis , edema. Neurological: Speech is clear, alert, and oriented x 4. No motor or sensory deficit, deep tendon reflexes normal, cerebellar intact. Cranial nerves II-XII intact. Psych: Alert and or appropriate, normal affect. Vascular: Good distal pulses, which are equal x4; capillary refill less than 2 seconds. Lymphatic, no lymphadenopathy. Result Diagram: 06/10/2550206/10/25502 Problem\Assessment\Plan Plan/ Assessment Hypertensive emergency dementia-related psychosis -CXR neg, UA unremarkable, EKG sinus 78bpm, no ST elevation/depression -start antihypertensives -follow venous US, CT head HTN CAD s/p stent x 2 -pending med rec DVT/VTE prophylaxis: Heparin Code status: Full code Sepsis Screening Reassessment Date: Jun 10, 2025 Date of Service: Jun 10, 2025 Billing Provider: KRIS MERCHANT MD Common Visit Codes: [id number] INP/OBS CARE(HIGH) KRIS MERCHANT MD Jun 10, 2025 15:45
[2025-06-10] MEDS: haloperidol lactate 5mg/ml inj IM ONE (17:09)
[2025-06-10] MEDS: levoFLOXACIN-Levaquin 500mg/D5 100 ML IV SCH (20:13)
[2025-06-10 22:00] VITALS: BP 157/81; PULSE 113; RESP 16; TEMP 98.4; O2SAT 93
[2025-06-11] MEDS: diazepam inj 5 MG/ML inj. IV PRN (00:32)
[2025-06-11 01:29] VITALS: BP 123/98
[2025-06-11 06:00] VITALS: BP 141/93; PULSE 107; RESP 16; TEMP 97.7; O2SAT 93
[2025-06-11 06:33] LABS: MEAN PLATELET VOLUME 7.8 FL (7.4-10.4); RED CELL DISTRIBUTION WIDTH 13.2 % (11.5-14.5)
[2025-06-11 07:04] LABS: CREATININE 0.67 MG/DL (0.40-0.90); TOTAL CARBON DIOXIDE 22.5 MMOL/L (24-32); eCRCL 46 ML/MIN; eGFR 84 ML/MIN
[2025-06-11 11:00] VITALS: BP 135/70; PULSE 105; RESP 22; TEMP 97; O2SAT 94
[2025-06-11 13:26] VITALS: PULSE 110; RESP 12; O2SAT 92
[2025-06-11 18:30] VITALS: BP 128/72; PULSE 109; RESP 20; TEMP 97.5; O2SAT 93
--- NOTE | 2025-06-11 19:27 | PROGRESS NOTE ---
Daily Progress Note Providers to CC Had an episode of agitation today, resting comfortably in bed now ~ Central Line/PICC still needed: No Severino-Non Protocol Severino Indications Met/Not Met: F/C Indications Not Met Antibiotic Timeout Antibiotic Ordered?: Yes MRSA Education MRSA Education Provided to pt: Yes Subjective As above Objective Vital Signs Date Time Temp Pulse Resp B/P (MAP) Pulse Ox O2 Delivery O2 Flow Rate FiO2 06/11/25 16:03 107 06/11/25 13:26 12 92 Room Air 06/11/25 11:00 97.0 135/70 (91) 06/09/25 21:40 0 Vital signs, stable ,afebrile. Pulse Oximetry reflects adequate oxygenation. General: well developed, well nourished. Awake , alert, and oriented x4, resting comfortably in the bed, in no acute distress . Skin: Warm, dry, no pallor, no rash or petechiae. HEENT: Atraumatic, normocephalic, EOMI, anicteric sclera B; pink conjunctiva; PERRLA, normal oropharynx, moist oral and nasal mucosa. Tympanic membrane , nose , throat clear. Neck: Trachea midline. Supple, full range of motion, no JVD, bruit , hepatojugular reflex , lymphadenopathy or masses, or other lesions Cardiac: Regular rhythm, regular rate no murmurs, rubs, or gallops. Normal S1 and S2, no S3 noticed. PMI is normal. Respiratory: Equal breath sounds bilaterally, no tachypnea; lungs clear to auscultation bilaterally, no wheezing ,rub or rales, or crackles. Chest wall is symmetric and without deformity. No signs of trauma. Chest wall is nontender. No signs of respiratory distress. Resonance is normal upon percussion bilaterally. Gastrointestinal: Abdomen symmetric, non-distended, soft, non-tender, normal bowel sounds x4 quadrant, normoactive, no hepatosplenomegaly , no masses , no bruit, no flank pain bilaterally. No voluntary guarding, rebound, or rigidity. No tenderness to percussion. No pulsatile masses. Equal femoral pulses. No Sarmiento's sign or McBurney point tenderness. Back; no CVA tenderness bilaterally, no deformities. Neck and back are without deformity as well. No tenderness noted on palpation of the spinous processes. Spinous processes are midline. Cervical, thoracic, and lumbar paraspinal muscles are not tender and are without spasm. Musculoskeletal: Extremities, normal range of motion, non-tender, muscle strength 5/5 x 4. Negative Homans signs bilaterally on lower extremity. Distal pulses full symmetrical, no clubbing, cyanosis , edema. Neurological: Speech is clear, alert, and oriented x 4. No motor or sensory deficit, deep tendon reflexes normal, cerebellar intact. Cranial nerves II-XII intact. Psych: Alert and or appropriate, normal affect. Vascular: Good distal pulses, which are equal x4; capillary refill less than 2 seconds. Lymphatic, no lymphadenopathy. Result Diagram: 06/11/2555406/11/25554 Problem\Assessment\Plan Plan/ Assessment UTI, on IV antibiotics Hypernatremia, increase p.o. free water intake Hypertensive emergency dementia-related psychosis -CXR neg, UA unremarkable, EKG sinus 78bpm, no ST elevation/depression -start antihypertensives -follow venous US, CT head Left lower leg subacute DVT, on Eliquis HTN CAD s/p stent x 2 Completed med rec DVT/VTE prophylaxis: Heparin Code status: Full code Sepsis Screening Reassessment Date: Jun 11, 2025 Date of Service: Jun 11, 2025 Billing Provider: KRIS MERCHANT MD Common Visit Codes: [id number] INP/OBS CARE(HIGH) KRIS MERCHANT MD Jun 11, 2025 19:27
[2025-06-11 22:00] VITALS: BP 135/74; PULSE 103; RESP 15; TEMP 97.3; O2SAT 91
[2025-06-12 06:01] LABS: MEAN PLATELET VOLUME 7.4 FL (7.4-10.4); RED CELL DISTRIBUTION WIDTH 13.5 % (11.5-14.5)
[2025-06-12 06:21] LABS: CREATININE 0.66 MG/DL (0.40-0.90); TOTAL CARBON DIOXIDE 24.5 MMOL/L (24-32); eCRCL 46 ML/MIN; eGFR 86 ML/MIN
[2025-06-12 06:56] VITALS: BP_SYST 154; PULSE 90; RESP 14; TEMP 97.3
[2025-06-12] MEDS: lactose-reduced food (Ensure Enlive) - 237ml bottle PO SCH (08:39)
[2025-06-12 10:00] VITALS: BP 129/70; PULSE 82; RESP 19; TEMP 99.2; O2SAT 91
[2025-06-12] MEDS: potassium Cl 40MEQ/1/2NS 520ml 520 ML IV PRN (16:27)
[2025-06-12 18:30] VITALS: BP 124/84; PULSE 94; RESP 16; TEMP 97.8; O2SAT 91
--- NOTE | 2025-06-12 19:04 | PROGRESS NOTE ---
Daily Progress Note Providers to CC Feels better today, resting comfortably less than disease ~ Central Line/PICC still needed: No Severino-Non Protocol Severino Indications Met/Not Met: F/C Indications Not Met Antibiotic Timeout Antibiotic Ordered?: No MRSA Education MRSA Education Provided to pt: No Subjective As above Objective Vital Signs Date Time Temp Pulse Resp B/P (MAP) Pulse Ox O2 Delivery O2 Flow Rate FiO2 06/12/25 16:00 94 06/12/25 10:00 99.2 19 129/70 (89) 91 Room Air 06/12/25 08:00 0.0 Vital signs, stable ,afebrile. Pulse Oximetry reflects adequate oxygenation. General: well developed, well nourished. Awake , alert, and oriented x4, resting comfortably in the bed, in no acute distress . Skin: Warm, dry, no pallor, no rash or petechiae. HEENT: Atraumatic, normocephalic, EOMI, anicteric sclera B; pink conjunctiva; PERRLA, normal oropharynx, moist oral and nasal mucosa. Tympanic membrane , nose , throat clear. Neck: Trachea midline. Supple, full range of motion, no JVD, bruit , hepatojugular reflex , lymphadenopathy or masses, or other lesions Cardiac: Regular rhythm, regular rate no murmurs, rubs, or gallops. Normal S1 and S2, no S3 noticed. PMI is normal. Respiratory: Equal breath sounds bilaterally, no tachypnea; lungs clear to auscultation bilaterally, no wheezing ,rub or rales, or crackles. Chest wall is symmetric and without deformity. No signs of trauma. Chest wall is nontender. No signs of respiratory distress. Resonance is normal upon percussion bilaterally. Gastrointestinal: Abdomen symmetric, non-distended, soft, non-tender, normal bowel sounds x4 quadrant, normoactive, no hepatosplenomegaly , no masses , no bruit, no flank pain bilaterally. No voluntary guarding, rebound, or rigidity. No tenderness to percussion. No pulsatile masses. Equal femoral pulses. No Sarmiento's sign or McBurney point tenderness. Back; no CVA tenderness bilaterally, no deformities. Neck and back are without deformity as well. No tenderness noted on palpation of the spinous processes. Spinous processes are midline. Cervical, thoracic, and lumbar paraspinal muscles are not tender and are without spasm. Musculoskeletal: Extremities, normal range of motion, non-tender, muscle strength 5/5 x 4. Negative Homans signs bilaterally on lower extremity. Distal pulses full symmetrical, no clubbing, cyanosis , edema. Neurological: Speech is clear, alert, and oriented x 4. No motor or sensory deficit, deep tendon reflexes normal, cerebellar intact. Cranial nerves II-XII intact. Psych: Alert and or appropriate, normal affect. Vascular: Good distal pulses, which are equal x4; capillary refill less than 2 seconds. Lymphatic, no lymphadenopathy. Result Diagram: 06/12/2551906/12/25519 Problem\Assessment\Plan Plan/ Assessment UTI, on IV antibiotics Hypernatremia, discontinue saline infusion, increase p.o. free water intake Hypertensive emergency, resolved dementia-related psychosis -CXR neg, UA unremarkable, EKG sinus 78bpm, no ST elevation/depression -start antihypertensives -follow venous US, CT head Left lower leg subacute DVT, on Eliquis HTN CAD s/p stent x 2 Completed med rec DVT/VTE prophylaxis: Heparin Code status: Full code Sepsis Screening Reassessment Date: Jun 12, 2025 Date of Service: Jun 12, 2025 Billing Provider: KRIS MERCHANT MD Common Visit Codes: [id number] INP/OBS CARE(HIGH) KRIS MERCHANT MD Jun 12, 2025 19:04
[2025-06-12 20:00] VITALS: O2SAT 92
[2025-06-12 20:46] VITALS: BP 160/84
[2025-06-12 22:00] VITALS: BP 164/79; PULSE 101; RESP 20; TEMP 99.3; O2SAT 86
[2025-06-12] MEDS ORDERED: hydrALAZINE 20mg/ml inj. IV PRN (23:25)
[2025-06-13] VITALS (9 sets, daily range): BP systolic 134–163; BP diastolic 64–82; PULSE 81–110; RESP 14–20; TEMP 97.6–99; O2SAT 92–98
[2025-06-13 07:02] LABS: CREATININE 0.84 MG/DL (0.40-0.90); PRO BRAIN NATRIURETIC PEPTIDE 302 PG/ML (0-450); TOTAL CARBON DIOXIDE 25.7 MMOL/L (24-32); eCRCL 36 ML/MIN; eGFR 65 ML/MIN
[2025-06-13 07:03] LABS: MEAN PLATELET VOLUME 7.4 FL (7.4-10.4); RED CELL DISTRIBUTION WIDTH 14.1 % (11.5-14.5)
[2025-06-13] MEDS: levoFLOXACIN-Levaquin 500mg/D5 100 ML IV SCH (13:14)
[2025-06-13] MEDS ORDERED: ipratropium/albuterol 3ml nebule NEB PRN (14:10)
[2025-06-13 16:03] LABS: ABG BASE EXCESS -1.4 mmol/L (-2.0-3.0); ABG HCO3 23.1 mmol/L (21.0-28.0); ABG OXYGEN SATURATION 94.6 % (94.0-98.0); ABG PCO2 (T) 38.3 mmHg (32.0-45.0); ABG PH (T) 7.399 (7.350-7.450); ABG PO2 (T) 66.7 mmHg (83.0-108.0); ALLEN'S TEST POSITIVE; FCOHb 0.1 % (0.5-1.5); FHHb 5.4 % (0.0-5.0); FIO2 35.0 mmHg/%; FLOW 12 L/min; FMetHb 0.3 % (0.0-1.5); FO2Hb 94.2 % (94.0-98.0); MODE Venturi Mask; PATIENT TEMPERATURE 37.0; TOTAL HEMOGLOBIN 12.5 G/dl (12.0-16.0)
[2025-06-13] MEDS ORDERED: morphine 10mg/0.5ml (conc. morphine) oral syringe PO PRN (16:45)
[2025-06-13] MEDS ORDERED: diazepam inj 5 MG/ML inj. IV PRN (16:55)
--- NOTE | 2025-06-13 16:55 | RADIOLOGY REPORT ---
Indication: sepsis Technique: CT axial images of the chest, abdomen and pelvis are obtained with intravenous contrast. Coronal and sagittal reformats were obtained. Radiation Dose Information: CTDI volume is 27 mGy. Dose-length product is 2041 mGy*cm Comparison: CT ABDOMEN PELVIS on DOS: 11/18/22 FINDINGS: Trachea patent. No pneumothorax. Bilateral atelectasis. Tiny bilateral pleural effusions. Bilateral lower lobe consolidation. Heart size at the upper limits of normal. Coronary artery calcification disease. Aortic atherosclerotic disease. No supraclavicular, axillary lymphadenopathy. Kidneys demonstrate no hydronephrosis. 2 mm nonobstructing left renal calculus Stomach is partially distended. Small bowel loops are normal in caliber. Rectal/anal wall thickening and surrounding stranding. Colonic diverticular disease. Moderate volume stool in the colon. Normal appendix. Abdominal aortic atherosclerotic disease, tortuosity. Bladder distended. No inguinal lymphadenopathy. Xnox-re-srotplti bilateral sacroiliac degenerative joint disease. Left shoulder arthroplasty. Moderate thoracic degenerative disc disease. Severe lumbar degenerative disc disease. IMPRESSION: Rectal/anal wall thickening with surrounding stranding. Correlate for proctocolitis, inflammatory disease and other etiologies. Colonic diverticular disease. Bilateral lower lobe consolidation/atelectasis. Tiny bilateral pleural effusions. Cholecystectomy. Atherosclerotic disease. Bladder distention. Other findings as described.
[2025-06-13] MEDS: morphine 10mg/0.5ml (conc. morphine) oral syringe PO PRN (17:10)
--- NOTE | 2025-06-13 18:14 | PROGRESS NOTE ---
Daily Progress Note Providers to CC ~ somnolent, resting comfortably in the bed Central Line/PICC still needed: No Severino-Non Protocol Severino Indications Met/Not Met: F/C Indications Met Antibiotic Timeout Antibiotic Ordered?: No MRSA Education MRSA Education Provided to pt: No Subjective As above Objective Vital Signs Date Time Temp Pulse Resp B/P (MAP) Pulse Ox O2 Delivery O2 Flow Rate FiO2 06/13/25 16:35 85 20 92 Venturi Mask+ 15 50 06/13/25 10:00 99.0 134/66 (88) Vital signs, stable ,afebrile. Pulse Oximetry reflects adequate oxygenation 15 L oxygen nasal cannula General: well developed, well nourished. Somnolent, resting comfortably in the bed, in respiratory acute distress . Skin: Warm, dry, no pallor, no rash or petechiae. HEENT: Atraumatic, normocephalic, EOMI, anicteric sclera B; pink conjunctiva; PERRLA, normal oropharynx, moist oral and nasal mucosa. Tympanic membrane , nose , throat clear. Neck: Trachea midline. Supple, full range of motion, no JVD, bruit , hepatojugular reflex , lymphadenopathy or masses, or other lesions Cardiac: Regular rhythm, regular rate no murmurs, rubs, or gallops. Normal S1 and S2, no S3 noticed. PMI is normal. Respiratory: Equal breath sounds bilaterally, no tachypnea; lungs clear to auscultation bilaterally, no wheezing ,rub or rales, or crackles. Chest wall is symmetric and without deformity. No signs of trauma. Chest wall is nontender. No signs of respiratory distress. Resonance is normal upon percussion bilaterally. Gastrointestinal: Abdomen symmetric, non-distended, soft, non-tender, normal bowel sounds x4 quadrant, normoactive, no hepatosplenomegaly , no masses , no bruit, no flank pain bilaterally. No voluntary guarding, rebound, or rigidity. No tenderness to percussion. No pulsatile masses. Equal femoral pulses. No Sarmiento's sign or McBurney point tenderness. Back; no CVA tenderness bilaterally, no deformities. Neck and back are without deformity as well. No tenderness noted on palpation of the spinous processes. Spinous processes are midline. Cervical, thoracic, and lumbar paraspinal muscles are not tender and are without spasm. Musculoskeletal: Extremities, normal range of motion, non-tender, muscle strength 5/5 x 4. Negative Homans signs bilaterally on lower extremity. Distal pulses full symmetrical, no clubbing, cyanosis , edema. Neurological: Somnolent Psych: Somnolent Vascular: Good distal pulses, which are equal x4; capillary refill less than 2 seconds. Lymphatic, no lymphadenopathy. Result Diagram: 06/13/2562106/13/25621 Problem\Assessment\Plan Plan/ Assessment Bilateral pneumonia community-acquired Gram-positive Gram-negative Acute respiratory failure secondary to hypoxia Acute colitis Sepsis UTI, on IV antibiotics Hypernatremia, discontinue saline infusion, increase p.o. free water intake Hypertensive emergency, resolved dementia-related psychosis -CXR neg, UA unremarkable, EKG sinus 78bpm, no ST elevation/depression -start antihypertensives -follow venous US, CT head Left lower leg subacute DVT, on Eliquis HTN CAD s/p stent x 2 Completed med rec DVT/VTE prophylaxis: Heparin Code status: Family elected today to have patient DNR comfort care only, comfort care order initiated Sepsis Screening Reassessment Date: Jun 13, 2025 Date of Service: Jun 13, 2025 Billing Provider: KRIS MERCHANT MD Common Visit Codes: [id number] INP/OBS CARE(HIGH) KRIS MERCHANT MD Jun 13, 2025 18:14
[2025-06-13] MEDS: docusate sod 100mg capsule PO SCH (19:46)
[2025-06-13] MEDS: morphine 4 MG/ML inj SYRINge IV PRN (23:51)
[2025-06-14 08:51] VITALS: PULSE 91; RESP 18; O2SAT 88
[2025-06-14 10:00] VITALS: BP 178/78; PULSE 91; RESP 20; TEMP 98.1; O2SAT 91
[2025-06-14 12:41] VITALS: RESP 18
--- NOTE | 2025-06-14 17:02 | PROGRESS NOTE ---
Daily Progress Note Providers to CC ~ patient resting comfortably in the bed, family decided to continue DNR comfort care only and discontinue oxygen support Central Line/PICC still needed: No Severino-Non Protocol Severino Indications Met/Not Met: F/C Indications Not Met Antibiotic Timeout Antibiotic Ordered?: No MRSA Education MRSA Education Provided to pt: No Subjective As above Objective Vital Signs Date Time Temp Pulse Resp B/P (MAP) Pulse Ox O2 Delivery O2 Flow Rate FiO2 06/14/25 12:41 18 06/14/25 10:00 98.1 91 178/78 (111) 91 Nasal Cannula 4.0 06/14/25 08:51 36 Vital signs, stable ,afebrile. Pulse Oximetry reflects adequate oxygenation. General: well developed, well nourished. Somnolent resting comfortably in the bed, in no acute distress . Skin: Warm, dry, no pallor, no rash or petechiae. HEENT: Atraumatic, normocephalic, EOMI, anicteric sclera B; pink conjunctiva; PERRLA, normal oropharynx, moist oral and nasal mucosa. Tympanic membrane , nose , throat clear. Neck: Trachea midline. Supple, full range of motion, no JVD, bruit , hepatojugular reflex , lymphadenopathy or masses, or other lesions Cardiac: Regular rhythm, regular rate no murmurs, rubs, or gallops. Normal S1 and S2, no S3 noticed. PMI is normal. Respiratory: Equal breath sounds bilaterally, no tachypnea; lungs clear to auscultation bilaterally, no wheezing ,rub or rales, or crackles. Chest wall is symmetric and without deformity. No signs of trauma. Chest wall is nontender. No signs of respiratory distress. Resonance is normal upon percussion bilaterally. Gastrointestinal: Abdomen symmetric, non-distended, soft, non-tender, normal bowel sounds x4 quadrant, normoactive, no hepatosplenomegaly , no masses , no bruit, no flank pain bilaterally. No voluntary guarding, rebound, or rigidity. No tenderness to percussion. No pulsatile masses. Equal femoral pulses. No Sarmiento's sign or McBurney point tenderness. Back; no CVA tenderness bilaterally, no deformities. Neck and back are without deformity as well. No tenderness noted on palpation of the spinous processes. Spinous processes are midline. Cervical, thoracic, and lumbar paraspinal muscles are not tender and are without spasm. Musculoskeletal: Extremities, normal range of motion, non-tender, muscle strength 5/5 x 4. Negative Homans signs bilaterally on lower extremity. Distal pulses full symmetrical, no clubbing, cyanosis , edema. Neurological: Somnolent Vascular: Good distal pulses, which are equal x4; capillary refill less than 2 seconds. Lymphatic, no lymphadenopathy. Result Diagram: 06/13/2562106/13/25621 Problem\Assessment\Plan Plan/ Assessment Bilateral pneumonia community-acquired Gram-positive Gram-negative Acute respiratory failure secondary to hypoxia Acute colitis Sepsis UTI, on IV antibiotics Hypernatremia, discontinue saline infusion, increase p.o. free water intake Hypertensive emergency, resolved dementia-related psychosis -CXR neg, UA unremarkable, EKG sinus 78bpm, no ST elevation/depression -start antihypertensives -follow venous US, CT head Left lower leg subacute DVT, on Eliquis HTN CAD s/p stent x 2 Completed med rec DVT/VTE prophylaxis: Heparin Code status: Family elected today to have patient DNR comfort care only, comfort care order initiated Sepsis Screening Reassessment Date: Jun 14, 2025 Date of Service: Jun 14, 2025 Billing Provider: KRIS MERCHANT MD Common Visit Codes: [id number] INP/OBS CARE(MOD) KRIS MERCHANT MD Jun 14, 2025 17:02
--- NOTE | 2025-06-15 10:53 | DISCHARGE SUMMARY ---
Discharge Summary Providers to Patient , June 14 2025 at 18 ;19 p.m. 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 Coronary artery disease status post angioplasty and stent placement Complicated UTI Bilateral pneumonia community-acquired Gram-positive Gram-negative mixed milo Acute respiratory failure secondary to hypoxia Metabolic encephalopathy secondary to above Hypertension Osteoporosis Rotator cuff Hysterectomy Cholecystectomy Orthopedic surgeries [facility] surgery Hospital Course DATE OF ADMISSION: June 09, 2020 DATE OF DISCHARGE: June 14, 2025 Discharge Diagnosis\Comment: 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 Coronary artery disease status post angioplasty and stent placement Complicated UTI Bilateral pneumonia community-acquired Gram-positive Gram-negative mixed milo Acute respiratory failure secondary to hypoxia Metabolic encephalopathy secondary to above Hypertension Osteoporosis Rotator cuff Hysterectomy Cholecystectomy Orthopedic [facility] Operations\Procedures: Non Consultants: Non Complications: Condition on DC: Discharge Summary: Radha Rojas is a 84-year-old female with a past medical history of hypertension and CAD s/p stent who was brought to the ED due to concerns for intermittent erratic behavior including stating things that are not there, not remembering her residence x 1 week. Patient also reports left lower ankle swelling that she noticed recently. At the time of admission assessment in the presence of her daughter, patient is A&Ox3 and does not display any abnormal neurological symptoms. History was taken from the patient and her daughter who was at bedside. Patient denies prior CVA, seizures, cardiac arrhythmia, DVT/PE, or GIB. Patient denies chest pain, palpitations, shortness of breath, abdominal pain, n/v/d. Patient is to be admitted for further workups and treatment. To admission patient extensively evaluated and treated, patient condition gradually deteriorated, she did not respond adequately to therapy her hypoxia increases she became unresponsive, family member decided to have patient DNR comfort care only. Comfort care order initiated, and I was notified, on June 15, 2025, patient peacefully June 14 2025 in the p.m. Family member at bedside *Problems/Diagnosis: (1) Acute urinary tract infection Status: Acute (2) Metabolic encephalopathy Status: Acute (3) UTI (urinary tract infection) Status: Acute Total Time Spent on D/C: > 30 Minutes Date of Service: Jun 15, 2025 Billing Provider: KRIS MERCHANT MD Common Visit Codes: 24773-AJD/OBS DISCH DAY >30min KRIS MERCHANT MD Jun 15, 2025 10:53
== END 2025-06-14 21:10 | DRG 871 ==
LOC: ER 11:31 → ED HOLD 16:20 → ORTHO 4S 22:20
PROVIDERS: ADMIT Nurse Practitioner Family; ATTEND Nurse Practitioner Family
PROC: BW251ZZ Computerized Tomography (CT Scan) of Chest, Abdomen and Pelvis using Low Osmolar Contrast (ICD-10-PCS; principal; 2025-06-13)
DX: A41.9 Sepsis, unspecified organism (principal); G93.41 Metabolic encephalopathy; J96.01 Acute respiratory failure with hypoxia; J15.69 Pneumonia due to other Gram-negative bacteria; J15.9 Unspecified bacterial pneumonia; I16.1 Hypertensive emergency; N39.0 Urinary tract infection, site not specified; F23 Brief psychotic disorder; F03.92 Unspecified dementia, unspecified severity, with psychotic disturbance; Z66 Do not resuscitate; Z20.822 Contact with and (suspected) exposure to COVID-19; K52.9 Noninfective gastroenteritis and colitis, unspecified; K21.9 Gastro-esophageal reflux disease without esophagitis; I10 Essential (primary) hypertension; I25.10 Atherosclerotic heart disease of native coronary artery without angina pectoris; Z51.5 Encounter for palliative care; Z88.0 Allergy status to penicillin; Z90.710 Acquired absence of both cervix and uterus; Z95.5 Presence of coronary angioplasty implant and graft; Z79.82 Long term (current) use of aspirin; Z79.899 Other long term (current) drug therapy
CPT/HCPCS: 36415; 36600; 70450; 71045; 71250; 74176; 80048; 80053; 80061; 81001; 82140; 82550; 82803; 82948; 83605; 83690; 83735; 83880; 84484; 85018; 85025; 87040; 87081; 87088; 87811; 92508; 92616; 93005; 93970; 94760; 96372; 96374; 97161; 97530; 97535; 99285; A4615; A4620; A6258; G0378; J0360; J1630; J1644; J1938; J1956; J2270; J3360; J3480; J7030; J7070